=== PATIENT | female | born 1985 | race Caucasian/White ===

== ENCOUNTER 2021-10-08 17:27 | Emergency (ER) | payer OTHER ==
[~2021-10-08] VITALS: Ht 165.1 cm; Wt 123.4 kg
[2021-10-08 18:48] LABS: URINE BILIRUBIN NEGATIVE (Negative); URINE BLOOD NEGATIVE (Negative); URINE CLARITY CLEAR; URINE COLOR YELLOW; URINE GLUCOSE-RANDOM* NEGATIVE (Negative); URINE KETONES NEGATIVE (Negative); URINE LEUKOCYTES-REFLEX NEGATIVE (Negative); URINE NITRITE-REFLEX NEGATIVE (Negative); URINE PROTEIN (DIPSTICK) NEGATIVE (Negative); URINE SPECIFIC GRAVITY 1.025 (1.005-1.035); URINE UROBILINOGEN 0.2 E.U./dl (0.2-1.0)
[2021-10-08] MEDS ORDERED: IBUPROFEN 800800 MG PO (19:29)
[2021-10-08] MEDS ORDERED: DIAZEPAM 5 MG5 M1 PO (19:29)
[2021-10-08 19:38] VITALS: BP 120/50
== END 2021-10-08 19:48 | disposition home or self-care (01) ==
LOC: ER 17:27
PROVIDERS: Emergency Medicine
DX: F41.9 Anxiety disorder, unspecified (principal); M54.6 Pain in thoracic spine; M54.50 Low back pain, unspecified; R45.1 Restlessness and agitation; M62.838 Other muscle spasm; F20.9 Schizophrenia, unspecified; F31.9 Bipolar disorder, unspecified; F17.210 Nicotine dependence, cigarettes, uncomplicated; Z98.890 Other specified postprocedural states; Z88.5 Allergy status to narcotic agent; Z88.8 Allergy status to other drugs, medicaments and biological substances; Z88.6 Allergy status to analgesic agent; Z88.1 Allergy status to other antibiotic agents; Z91.040 Latex allergy status

== ENCOUNTER 2021-10-20 22:25 | Emergency (ER) | payer OTHER ==
[~2021-10-20] VITALS: Ht 162.6 cm; Wt 122.5 kg
[~2021-10-20 22:25] MED LIST: DIAZEPAM 5 MG5 M1 PO; IBUPROFEN 800800 MG PO
[2021-10-20] MEDS ORDERED: NEURONTIN 300M300 M2 PO (22:36)
[2021-10-20] MEDS ORDERED: FLEXERIL PO (22:36)
[2021-10-20] MEDS ORDERED: PROZAC40 MG PO (22:36)
[2021-10-20] MEDS ORDERED: ACID CONTROLLER20 MG PO (22:37)
[2021-10-20] MEDS ORDERED: MAGNESIUM250 M1 PO (22:37)
[2021-10-20] MEDS ORDERED: PROAIR HFA8.5 GM INH (22:37)
[2021-10-20] MEDS ORDERED: MINIPRESS1 MG PO (22:38)
[2021-10-20 23:41] LABS: ABSOLUTE NEUTROPHILS 5.4 thou/uL (1.4-8.2); BASOPHILS 0.9 % (0.0-2.0); EOSINOPHILS 0.4 % (0.0-3.0); HEMATOCRIT 35.6 % (37.0-47.0); HEMOGLOBIN 11.8 gm/dL (12.0-15.0); LYMPHOCYTES 27.7 % (24.0-44.0); MCH 27.3 pg (26.0-34.0); MCHC 33.2 g/dL (28.0-37.0); MCV 82.1 fL (80.0-100.0); MONOCYTES 7.3 % (1.0-8.0); PLATELET COUNT 250 thou/uL (150-400); POLYS 63.7 % (36.0-66.0); RBC 4.33 mil/uL (4.20-5.00); RDW 14.4 % (10.5-14.5); WBC 8.5 thou/uL (4.0-11.0)
[2021-10-20 23:43] LABS: CALCIUM 8.8 mg/dL (8.5-10.1); POTASSIUM 3.6 mmol/L (3.5-5.1)
[2021-10-20 23:49] LABS: ALBUMIN 3.6 g/dL (3.4-5.0); TOTAL BILIRUBIN 0.2 mg/dL (0.2-1.0); TOTAL PROTEIN 7.4 g/dL (6.4-8.2)
[2021-10-21 00:43] VITALS: BP 123/59
== END 2021-10-21 00:40 | disposition home or self-care (01) ==
LOC: ER 22:25
PROVIDERS: Emergency Medicine
DX: M54.2 Cervicalgia (principal); R51.9 Headache, unspecified; M79.10 Myalgia, unspecified site; F20.9 Schizophrenia, unspecified; F31.9 Bipolar disorder, unspecified; F17.210 Nicotine dependence, cigarettes, uncomplicated; Z98.890 Other specified postprocedural states; Z88.1 Allergy status to other antibiotic agents; Z91.040 Latex allergy status; Z88.8 Allergy status to other drugs, medicaments and biological substances

== ENCOUNTER 2021-10-31 15:17 | Emergency (ER) | payer OTHER ==
[~2021-10-31] VITALS: Ht 165.1 cm; Wt 122.5 kg
[~2021-10-31 15:17] MED LIST changes: +ACID CONTROLLER20 MG PO; +FLEXERIL PO; +MAGNESIUM250 M1 PO; +MINIPRESS1 MG PO; +NEURONTIN 300M300 M2 PO; +PROAIR HFA8.5 GM INH; +PROZAC40 MG PO
[2021-10-31 15:30] VITALS: BP 97/70
[2021-10-31 17:46] LABS: URINE BILIRUBIN NEGATIVE (Negative); URINE BLOOD 3+ (Negative); URINE CLARITY CLOUDY; URINE COLOR YELLOW; URINE GLUCOSE-RANDOM* NEGATIVE (Negative); URINE KETONES NEGATIVE (Negative); URINE LEUKOCYTES-REFLEX 2+ (Negative); URINE NITRITE-REFLEX NEGATIVE (Negative); URINE PROTEIN (DIPSTICK) 2+ (Negative); URINE SPECIFIC GRAVITY >= 1.030 (1.005-1.035); URINE UROBILINOGEN 0.2 E.U./dl (0.2-1.0)
[2021-10-31] MEDS ORDERED: NAPROSYN500 MG PO (17:47)
[2021-10-31] MEDS ORDERED: PYRIDIUM200 MG PO (17:47)
[2021-10-31 17:49] LABS: BACTERIA-REFLEX 1-9 Few /HPF (None Seen); CRYSTALS None Seen /LPF (None Seen); SQUAMOUS 0-3 Few /LPF (0-3); URINE RBC >20 Many /HPF (NONE SEEN); URINE WBC-REFLEX >25 Many /HPF (0-5)
== END 2021-10-31 18:32 | disposition home or self-care (01) ==
LOC: ER 15:17
PROVIDERS: Nurse Practitioner
DX: N89.8 Other specified noninflammatory disorders of vagina (principal); F20.9 Schizophrenia, unspecified; F31.9 Bipolar disorder, unspecified; F17.210 Nicotine dependence, cigarettes, uncomplicated; Z98.890 Other specified postprocedural states; Z98.51 Tubal ligation status; Z79.51 Long term (current) use of inhaled steroids; Z79.899 Other long term (current) drug therapy; Z88.2 Allergy status to sulfonamides; Z88.8 Allergy status to other drugs, medicaments and biological substances; Z88.6 Allergy status to analgesic agent; Z88.1 Allergy status to other antibiotic agents; Z88.3 Allergy status to other anti-infective agents; Z91.040 Latex allergy status

== ENCOUNTER 2021-11-02 15:22 | Emergency (ER) | payer OTHER ==
[~2021-11-02] VITALS: Ht 165.1 cm; Wt 124.7 kg
[~2021-11-02 15:22] MED LIST changes: +NAPROSYN500 MG PO; +PYRIDIUM200 MG PO
[2021-11-02] MEDS ORDERED: CHILDREN'S ZYRT10 M1 PO (17:22)
[2021-11-02 17:41] LABS: URINE BILIRUBIN NEGATIVE (Negative); URINE BLOOD TRACE (Negative); URINE CLARITY CLEAR; URINE COLOR YELLOW; URINE GLUCOSE-RANDOM* NEGATIVE (Negative); URINE KETONES NEGATIVE (Negative); URINE NITRITE-REFLEX NEGATIVE (Negative); URINE PROTEIN (DIPSTICK) NEGATIVE (Negative); URINE SPECIFIC GRAVITY <= 1.005 (1.005-1.035); URINE UROBILINOGEN 0.2 E.U./dl (0.2-1.0)
[2021-11-02 17:43] LABS: URINE LEUKOCYTES-REFLEX 2+ (Negative)
[2021-11-02 17:50] LABS: AMP/METHAMP Negative (Negative); BARBITURATES Negative (Negative); BENZODIAZEPINES Negative (Negative); COCAINE Negative (Negative); METHADONE Negative (Negative); OPIATES Negative (Negative); PCP Negative (Negative)
[2021-11-02 17:52] LABS: HEMATOCRIT 37.2 % (37.0-47.0); HEMOGLOBIN 12.5 gm/dL (12.0-15.0); MCH 27.6 pg (26.0-34.0); MCHC 33.6 g/dL (28.0-37.0); MCV 82.1 fL (80.0-100.0); PLATELET COUNT 207 thou/uL (150-400); RBC 4.53 mil/uL (4.20-5.00); RDW 14.7 % (10.5-14.5)
[2021-11-02 17:53] LABS: CASTS None Seen /LPF (None Seen); SQUAMOUS 0-3 Few /LPF (0-3)
[2021-11-02 17:54] LABS: ANION GAP 9 mmol/L (7-16); BUN 12 mg/dL (7-18); CALCIUM 9.1 mg/dL (8.5-10.1); CHLORIDE 103 mmol/L (98-107); CO2 24 mmol/L (21-32); CREATININE 0.9 mg/dL (0.6-1.0); GLUCOSE 76 mg/dL (74-106); POTASSIUM 3.7 mmol/L (3.5-5.1); SODIUM 136 mmol/L (136-145)
[2021-11-02 17:54] LABS: BACTERIA-REFLEX >30 Many /HPF (None Seen); CRYSTALS None Seen /LPF (None Seen); URINE RBC 1-2 Rare /HPF (NONE SEEN)
[2021-11-02 18:04] LABS: ALBUMIN 4.1 g/dL (3.4-5.0); SGOT 12 U/L (15-37); SGPT 23 U/L (30-65); TOTAL BILIRUBIN 0.3 mg/dL (0.2-1.0); TOTAL PROTEIN 7.7 g/dL (6.4-8.2)
[2021-11-02] MEDS ORDERED: MACROBID 100 M100 M1 PO (18:30)
[2021-11-02] MEDS ORDERED: MOBIC7.5 MG PO (18:30)
[2021-11-02 18:36] VITALS: BP 127/71
[2021-11-02 19:50] LABS: ABSOLUTE NEUTROPHILS 6.6 thou/uL (1.4-8.2); ATYPICAL LYMPHS 2 %
--- NOTE | 2021-11-03 07:24 | EKG ---
[address] [address] ELECTROCARDIOGRAM REPORT Name: CHECHARLEENADEEM Room #: [facility] [id number] Admission: 11/02/21 Attend Phys: Discharge: Date of : 81 Report #: [id number] [facility] ED Test Date: 2021-11-02 Test Time: 15:33:28 Pat Name: NADEEM BERG Department: Room: Gender: F Supply Chain Director: ROSALINE : 1985 Requested By: Shin Montenegro Order Number: [id number] MD: Yung De Measurements Intervals [place] Rate: 78 P: 5 NC: 157 QRS: -3 QRSD: 90 T: 10 QT: 393 QTc: 448 Interpretive Statements Sinus rhythm Inferior infarct, old No previous ECG available for comparison Electronically Signed On 11-03-2021 7:23:48 DRIVE THRU ORDER TAKER by Yung De [email or web address] <ELECTRONICALLY SIGNED> By: Yung De MD, [facility] 11/03/21 0723 1533 1533 Yung De MD, FACC /EPI
== END 2021-11-02 18:41 | disposition admitted as inpatient to this hospital (09) ==
LOC: ER 15:22
PROVIDERS: Nurse Practitioner
DX: M94.0 Chondrocostal junction syndrome [Tietze] (principal); R42 Dizziness and giddiness; R05.9 Cough, unspecified; F17.210 Nicotine dependence, cigarettes, uncomplicated; Z88.1 Allergy status to other antibiotic agents; Z91.040 Latex allergy status; Z79.899 Other long term (current) drug therapy; Z98.890 Other specified postprocedural states; Z98.51 Tubal ligation status

== ENCOUNTER 2021-11-04 23:31 | Emergency (ER) | payer OTHER ==
[~2021-11-04] VITALS: Ht 152.4 cm; Wt 124.7 kg
[~2021-11-04 23:31] MED LIST changes: +CHILDREN'S ZYRT10 M1 PO; +MACROBID 100 M100 M1 PO; +MOBIC7.5 MG PO
[2021-11-05 00:50] LABS: ABSOLUTE NEUTROPHILS 4.9 thou/uL (1.4-8.2); BASOPHILS 0.6 % (0.0-2.0); EOSINOPHILS 1.5 % (0.0-3.0); HEMATOCRIT 33.4 % (37.0-47.0); HEMOGLOBIN 11.6 gm/dL (12.0-15.0); LYMPHOCYTES 32.2 % (24.0-44.0); MCH 28.2 pg (26.0-34.0); MCHC 34.7 g/dL (28.0-37.0); MCV 81.2 fL (80.0-100.0); MONOCYTES 6.5 % (1.0-8.0); PLATELET COUNT 237 thou/uL (150-400); POLYS 59.2 % (36.0-66.0); RBC 4.11 mil/uL (4.20-5.00); RDW 14.9 % (10.5-14.5); WBC 8.2 thou/uL (4.0-11.0)
[2021-11-05 00:58] LABS: URINE BILIRUBIN NEGATIVE (Negative); URINE BLOOD NEGATIVE (Negative); URINE CLARITY CLEAR; URINE COLOR YELLOW; URINE GLUCOSE-RANDOM* NEGATIVE (Negative); URINE KETONES NEGATIVE (Negative); URINE LEUKOCYTES-REFLEX NEGATIVE (Negative); URINE NITRITE-REFLEX NEGATIVE (Negative); URINE PROTEIN (DIPSTICK) NEGATIVE (Negative); URINE SPECIFIC GRAVITY 1.025 (1.005-1.035); URINE UROBILINOGEN 0.2 E.U./dl (0.2-1.0)
[2021-11-05 01:05] LABS: ANION GAP 6 mmol/L (7-16); BUN 14 mg/dL (7-18); CALCIUM 8.7 mg/dL (8.5-10.1); CHLORIDE 104 mmol/L (98-107); CO2 25 mmol/L (21-32); CREATININE 1.1 mg/dL (0.6-1.0); GLUCOSE 95 mg/dL (74-106); POTASSIUM 3.6 mmol/L (3.5-5.1); SODIUM 135 mmol/L (136-145)
[2021-11-05 01:15] LABS: ALBUMIN 3.6 g/dL (3.4-5.0); LIPASE 105 U/L (73-393); SGOT 13 U/L (15-37); SGPT 21 U/L (14-59); TOTAL BILIRUBIN 0.2 mg/dL (0.2-1.0); TOTAL PROTEIN 7.3 g/dL (6.4-8.2)
[2021-11-05] MEDS ORDERED: ZOFRAN ODT4 MG PO (05:39)
[2021-11-05] MEDS ORDERED: NAPROSYN500 MG PO (05:39)
[2021-11-05 06:01] VITALS: BP 138/59
--- NOTE | 2021-11-06 08:29 | EKG ---
[place] [address] [facility] [employer] [place] [address] ELECTROCARDIOGRAM REPORT Name: NADEEM BERG [facility]: [facility] [id number] Admission: 11/04/21 Attend Phys: Discharge: 11/05/21 Date of : 81 Report #: [id number] [facility] ED Test Date: 2021-11-04 Test Time: 23:37:51 Pat Name: NADEEM BERG Department: Room: Gender: Health Education Coordinator: kenna : 1985 Requested By: Osorio Acosta Order Number: [id number] MD: Dru Freeman Measurements Intervals [place] Rate: 70 P: 22 CA: 138 QRS: 23 QRSD: 94 T: 37 QT: 427 QTc: 461 Interpretive Statements Sinus rhythm No significant abnormality Compared to ECG 11/02/2021 15:33:28 No significant change was found Electronically Signed On 11-06-2021 8:29:40 [employer] by Dru Freeman [email or web address] <ELECTRONICALLY SIGNED> By: Dru Freeman MD, [facility] 11/06/21 0829 2337 2337 Dru Freeman MD, FACC /EPI
== END 2021-11-05 08:28 | disposition home or self-care (01) ==
LOC: ER 23:31
PROVIDERS: Emergency Medicine
DX: R07.89 Other chest pain (principal); Z20.822 Contact with and (suspected) exposure to COVID-19; R42 Dizziness and giddiness; R11.0 Nausea; M54.50 Low back pain, unspecified; R05.9 Cough, unspecified; F31.9 Bipolar disorder, unspecified; F20.9 Schizophrenia, unspecified; F17.210 Nicotine dependence, cigarettes, uncomplicated; Z98.51 Tubal ligation status; Z98.890 Other specified postprocedural states; Z79.1 Long term (current) use of non-steroidal anti-inflammatories (NSAID); Z79.891 Long term (current) use of opiate analgesic; Z79.51 Long term (current) use of inhaled steroids; Z79.899 Other long term (current) drug therapy; Z88.1 Allergy status to other antibiotic agents; Z88.8 Allergy status to other drugs, medicaments and biological substances; Z88.6 Allergy status to analgesic agent; Z91.040 Latex allergy status

== ENCOUNTER 2021-12-06 23:41 | Emergency (ER) | payer OTHER ==
[~2021-12-06] VITALS: Ht 165.1 cm; Wt 124.7 kg
[~2021-12-06 23:41] MED LIST changes: +ZOFRAN ODT4 MG PO
[2021-12-06 23:57] VITALS: BP 115/62
[2021-12-07] MEDS ORDERED: TRAZODONE HCL100 MG PO (00:04)
[2021-12-07 00:51] LABS: URINE BILIRUBIN NEGATIVE (Negative); URINE BLOOD NEGATIVE (Negative); URINE CLARITY CLEAR; URINE COLOR YELLOW; URINE GLUCOSE-RANDOM* NEGATIVE (Negative); URINE KETONES NEGATIVE (Negative); URINE LEUKOCYTES-REFLEX NEGATIVE (Negative); URINE NITRITE-REFLEX NEGATIVE (Negative); URINE PROTEIN (DIPSTICK) NEGATIVE (Negative); URINE SPECIFIC GRAVITY 1.025 (1.005-1.035)
[2021-12-07] MEDS ORDERED: NAPROSYN500 MG PO (01:00)
== END 2021-12-07 01:00 | disposition home or self-care (01) ==
LOC: ER 23:41
PROVIDERS: Emergency Medicine
DX: B34.9 Viral infection, unspecified (principal); Z20.822 Contact with and (suspected) exposure to COVID-19; F20.9 Schizophrenia, unspecified; F32.9 Major depressive disorder, single episode, unspecified; F17.210 Nicotine dependence, cigarettes, uncomplicated; Z98.51 Tubal ligation status; Z79.899 Other long term (current) drug therapy; Z88.0 Allergy status to penicillin; Z88.1 Allergy status to other antibiotic agents; Z91.040 Latex allergy status; Z88.8 Allergy status to other drugs, medicaments and biological substances

== ENCOUNTER 2021-12-14 02:04 | Emergency (ER) | payer OTHER ==
[~2021-12-14 02:04] MED LIST changes: +TRAZODONE HCL100 MG PO
[2021-12-14 02:13] VITALS: BP 139/66
[2021-12-14] MEDS ORDERED: CYCLOBENZAPRINE5 MG PO (03:22)
== END 2021-12-14 04:05 | disposition home or self-care (01) ==
LOC: ER 02:04
DX: M75.101 Unspecified rotator cuff tear or rupture of right shoulder, not specified as traumatic (principal); M25.511 Pain in right shoulder; F20.9 Schizophrenia, unspecified; F32.9 Major depressive disorder, single episode, unspecified; F17.210 Nicotine dependence, cigarettes, uncomplicated; Z98.51 Tubal ligation status; Z79.899 Other long term (current) drug therapy; Z88.0 Allergy status to penicillin; Z88.1 Allergy status to other antibiotic agents; Z91.040 Latex allergy status; Z88.8 Allergy status to other drugs, medicaments and biological substances

== ENCOUNTER 2021-12-17 20:13 | Emergency (ER) | payer OTHER ==
[~2021-12-17] VITALS: Ht 165.1 cm; Wt 124.7 kg
[~2021-12-17 20:13] MED LIST changes: +CYCLOBENZAPRINE5 MG PO
[2021-12-17] MEDS ORDERED: TESSALON PERLE100 MG PO (23:50)
[2021-12-17] MEDS ORDERED: ONDANSETRON HCL4 M2 PO (23:50)
[2021-12-18 03:25] VITALS: BP 131/78
== END 2021-12-18 01:05 | disposition home or self-care (01) ==
LOC: ER 20:13
DX: S60.021A Contusion of right index finger without damage to nail, initial encounter (principal); J06.9 Acute upper respiratory infection, unspecified; F20.9 Schizophrenia, unspecified; F32.9 Major depressive disorder, single episode, unspecified; F17.210 Nicotine dependence, cigarettes, uncomplicated; Z98.51 Tubal ligation status; Z79.899 Other long term (current) drug therapy; Z88.0 Allergy status to penicillin; Z88.1 Allergy status to other antibiotic agents; Z91.040 Latex allergy status; Z88.8 Allergy status to other drugs, medicaments and biological substances; W23.0XXA Caught, crushed, jammed, or pinched between moving objects, initial encounter; Y93.89 Activity, other specified; Y92.89 Other specified places as the place of occurrence of the external cause; Y99.8 Other external cause status

== ENCOUNTER → 2022-01-26 | Emergency (ER) | payer OTHER ==
[~2022-01-26] VITALS: Ht 167.6 cm; Wt 113.4 kg
[~2022-01-26] MED LIST changes: +ONDANSETRON HCL4 M2 PO; +TESSALON PERLE100 MG PO
[2022-01-26 21:44] VITALS: BP 106/73
== END ==
LOC: ER 21:36
DX: R10.13 Epigastric pain (principal); R10.11 Right upper quadrant pain; F25.9 Schizoaffective disorder, unspecified; F31.9 Bipolar disorder, unspecified; F41.9 Anxiety disorder, unspecified; F17.200 Nicotine dependence, unspecified, uncomplicated; Z88.1 Allergy status to other antibiotic agents; Z88.8 Allergy status to other drugs, medicaments and biological substances; Z91.040 Latex allergy status; Z90.49 Acquired absence of other specified parts of digestive tract